=== PATIENT | male | born 1960 | race Caucasian/White ===

== ENCOUNTER 2024-10-25 16:32 | Emergency (ER) | payer MEDICARE, SELFPAY ==
--- OUTSIDE RECORDS SUMMARY | 2024-10-25 16:35 | XMS_ITS | Clinical Summary ---
Author Organization [facility] [employer] Address [address] [place] [address] Care Team Providers Care Train Operator Name Role Phone Elena Rascon NP Primary Care Provider [phone] Allergies No known active allergies Medications multivitamin (MVI) tablet Take 1 tablet by mouth once daily. 0 10/14/2018 Active Klozm-9-WCV-EPA -Fish Oil 1,000 mg (120 mg-180 mg) cap Take 1 capsule by mouth. 0 10/14/2018 Active multivitamins with minerals (Hair,Skin and Nails) tablet Take 1 Tablet by mouth once daily. 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/17/2014 Varicose veins 07/22/2013 Immunizations Name Administration Dates Next Due Td, Preservative Free (age >= 7 Years) 5 Tdap 07/27/2014 Family History Medical History Relation Name Comments Diabetes Brother 1 Aneurysm Brother 2 Devonte Crohn's disease Brother 2 Devonte Leukemia Brother 2 Devonte Hypertension Father Cancer Maternal Grandfather bone ca ncer Heart attack Maternal Grandmother Cancer Mother skin Heart Disease Mother Dementia Sister 1 Diabetes Sister 1 Other Sister 2 brain tumor Relation Name Status Comments Brother 1 Alive Brother 2 Devonte Daughter Alive Father Maternal Grandfather Maternal Grandmother Mother Paternal Grandfather Paternal Grandmother Sister 1 Alive Sister 2 Alive Son Alive Social History Tobacco Use Types Packs/Day Years Used Date Smoking Tobacco: Former Cigarettes 1 11 0 09/26/1974 - 09/26/1985 Smokeless Tobacco: Never Comments:quit 20 years ago Alcohol Use Standard Drinks/Week Comments Yes 0 (1 standard drink = 0.6 oz pur e alcohol) couple times per month PHQ-2 Answer Date Recorded PHQ-2 TOTAL SCORE 0 01/10/2021 Social Connections Answer Date Recorded Frequency of Communication with Friends and Fami ly Not on file 09/01/2021 Financial Resource Strain Answer Date R ecorded Difficulty of Paying Living Expenses Not on file 09/01/2021 Difficulty of Paying Living Expenses Not on file 09/01/2021 Sex and Gender Information Value Date Recorded Sex Assigned at Not on file Legal Sex Male 7:12 AM ADMISSIONS ASSISTANT Gender Identity Not on file Sexual Orientation Not on file Obstetrics History Last Filed Vital Signs Vital Sign Reading Time Taken Comments Blood Pressure 156/90 01/10/2021 8:35 AM CDT Pulse 69 01/10/2021 8:35 AM CDT Temperature 36.9 C (98.5 F) 08/17/2014 12:22 PM ADMISSIONS ASSISTANT Respiratory Rate 16 10/28/2016 8:04 AM ADMISSIONS ASSISTANT Oxygen Saturation - - Inhaled Oxygen Concentration - - Weight 94.8 kg (209 lb) 01/10/2021 7:41 AM CDT Height 172.7 cm (5' 8) 01/10/2021 7:41 AM CDT Body Mass Index 31.78 01/10/2021 7:41 AM CDT Plan of Treatment Health Maintenance Due Date Last Done Comments HIV for age 15-65 1973 Pneumococcal series for age 50+ (1 of 1 - PCV) 2008 Zoster (shingles) series for age 50+ (1 of 2) 2008 BMI (ht and wt on same day) for age 18+ 01/10/2022 01/10/2021, 10/14/2018, 10/28/2016 Depression screening for age 12+ 01/10/2022 01/11/20 21, 10/14/2018 Fecal testing sDNA-FIT ([place] guard) for age 45-75 02/01/2024 01/31/2021 COVID-19 vaccine series ( season) 2024 Influenza for age 65+ 05/02/2024 Tetanus booster 07/27/2024 07/27/2014, 07/02/2005 Lipids for age 45-75 01/10/2026 01/10/2021, 10/14/2018, 10/28/2016, Additional history exists RSV vaccine for adults or (1 - 1-dose 75+ series) 2033 Tdap Completed 07/27/2014 Hepatitis C screening for ag e 18-79 Completed 10/28/2016 Procedures Procedure Name Priority Date/Time Associated Diagnosis Comments SCAN-FECAL TEST DNA (COLOGUARD) 01/31/2021 12:00 AM CDT LIPID PANEL W REFLEX MEASURED LDL Routine 01/10/2021 8:49 AM CDT Lipid screening ANTI HCV Routine 10/28/2016 9:07 AM ADMISSIONS ASSISTANT Need for hepatitis C screening test from Last 3 Months or Most Recently Relevant to Health Maintenance Results * SCAN-FECAL TEST DNA (COLOGUARD) (01/31/2021 12:00 AM CDT) us Scanner OTHER Final Result * (ABNORMAL) LIPID PANEL W REFLEX MEASURED LDL (01/10/2021 8:49 AM CDT) CHOLESTEROL,TOTAL 134 100 - 199 mg/dL 01/10/2021 9:27 AM CDT [facility] TRIGLYCERIDES 229(H) <150 mg/dL 01/10/2021 9:27 AM CDT [facility] HDL CHOLESTEROL 26(L) >40 mg/dL 9:27 AM CDT [facility] NON-HDL CHOLESTEROL 108 <145 mg/dl 01/10/2021 9:27 AM CDT [facility] CHOL/HDL RATIO 5.15(H) <4.50 01/10/2021 9:27 AM CDT [facility] LDL CHOLESTEROL 62 <=130 mg/dL 01/10/2021 9:27 AM CDT [facility] VLDL CHOLESTEROL 46 mg/dL 01/11/20 9:27 AM CDT [facility] PROVIDER ORDERED STATUS RANDOM 01/10/2021 9:27 AM CDT [facility] Blood BLOOD SPECIMEN / Unknown Venipuncture / Unknown 01/10/2021 8:49 AM CDT 01/10/2021 8:52 AM CDT Elena Rascon COLD WORKING INSPECTOR CHEMISTRY Final Result [facility] [address] [place] [address] * ANTI HCV [10444.2] (10/28/2016 9:07 AM ADMISSIONS ASSISTANT) HEPATITIS C ANTIBODY Non-Reacti ve Non-Reacti ve 10/28/2016 4:38 PM ADMISSIONS ASSISTANT [facility] Blood BLOOD SPECIMEN / Unknown Venipuncture / Unknown 10/28/2016 9:07 AM ADMISSIONS ASSISTANT 10/28/2016 9:07 AM ADMISSIONS ASSISTANT Narrative [facility] - 10/28/2016 4:38 PM ADMISSIONS ASSISTANT Antibodies to HCV not detected; does not exclude the possibility of exposure to HCV. Elena Rascon NP SEND OUTS Final Result [facility] [address] [place] [address], from Last 3 Months or Most Recently Relevant to Health Maintenance Insurance [facility] Care Teams Train Operator Relationship Specialty Start Date End Date Elena Rascon NP [address] [place] [address] [place] [id number] PCP - General Family Practice 10/28/16
[2024-10-25 17:36] VITALS: BP 145/97; PULSE 68; RESP 18; TEMP 37.2; O2SAT 98; BMI 26.8
--- NOTE | 2024-10-25 19:17 | CRLHL7_ITS ---
For Patients: As a result of the 21st Century Cures Act, medical imaging exams and procedure reports are released immediately into your electronic medical record. You may view this report before your referring provider. If you have questions, please contact your health care provider. INDICATION: NAUSEA. KNOWN Diffuse METASTATIC DISEASE. KIDNEY CANCER, PT HAS Uncontrollable HICCUPS TECHNIQUE: CT abdomen and pelvis acquired with 86 cc Isovue 370 IV contrast. COMPARISON: None. FINDINGS: Lower chest: The visualized lower lungs are aerated. No pleural or pericardial effusion. ABDOMEN: Liver: Segment 5 hypoenhancing mass measuring 6.6 cm likely metastasis. Hypodensity the left hepatic segment 4A/2 is incompletely characterized. Gallbladder and biliary: Normal gallbladder without radiopaque stone. Normal caliber bile ducts. Spleen: Normal size and enhancement. Pancreas: Normal enhancement without peripancreatic inflammatory changes or ductal dilatation. Adrenal glands: Changes of left adrenalectomy. Normal right adrenal gland. Kidneys and ureters: Normal enhancement right kidney. No hydroureteronephrosis. Changes left nephrectomy with soft tissue and hypoenhancing masslike lesion abutting the resection space invading into the adjacent psoas musculature. Likely abutting/involving the pancreatic tail and medial aspect of the splenic capsule and portion of the splenic flexure descending colon.. This also abuts the central aspect of the left hemidiaphragm. GI tract: Diffuse circumferential wall thickening of the esophagus. Potentially from esophagitis. Normal caliber small and large bowel loops. Normal appendix. Colonic diverticulosis without diverticulitis. Vascular structures: Normal caliber abdominal aorta. Lymph nodes: No lymphadenopathy in the abdomen or pelvis by size criteria. Peritoneum: No free air, free fluid, or focal drainable fluid collection. PELVIS: Genitourinary system: Normal urinary bladder with right bladder Hutch diverticulum. Normal-sized prostate. SKELETAL STRUCTURES AND SOFT TISSUES: Bilateral SI joint arthrosis. Lumbar spondylosis. IMPRESSION: 1. Changes left nephrectomy with soft tissue and hypoenhancing masslike lesion abutting the resection space invading into the adjacent psoas musculature. Likely abutting/involving the pancreatic tail and medial aspect of the splenic capsule and portion of the splenic flexure descending colon. This also abuts the central aspect of the left hemidiaphragm, potentially involving the left phrenic nerve which may explain the patient`s reported clinical symptoms. 2. Right hepatic lobe metastasis. 3. Circumferential wall thickening of the esophagus which may reflect underlying esophagitis. Please note that all CT scans at this facility use dose modulation, iterative reconstruction, and/or weight-based dosing when appropriate to reduce radiation dose to as low as reasonably achievable. Dictated by José Luis Stearns MD @ 10/25/2024 9:00:17 PM (Electronically Signed)
--- NOTE | 2024-10-25 19:26 | ED_ITS ---
HPI - General Adult General Date Seen: 10/25/24 Chief complaint: Unspecified Complaint, Adult Stated complaint: Vomited Friday night, dry heaves Time Seen by Provider: 10/25/24 18:59 Source: patient Mode of arrival: ambulatory Limitations: no limitations History of Present Illness HPI narrative: Patient is a 64-year-old male up here visiting from these are E presenting to emergency department for hiccups and dry hands. States he vomited once on Friday, and since then has been having repeated hiccups that seem to occur every few seconds. He is unsure if this is also making him nauseated but states that occurs he does have some epigastric discomfort. He is extensive metastatic cancer in his abdomen. His last round of chemotherapy was 1 month ago and now he is looking into trials for his cancer. Can only seem to eat or drink small amounts due to the hiccups. He was told to come to emergency department for evaluation for possible bowel obstruction. He states he had a normal bowel movement this morning does not believe he has 1 in denies any abdominal pain other than in his epigastric region when he hiccups. Was also told to try Compazine. No other concerns noted. Related Data Home Medications ?Medication ?Instructions ?Recorded ?Confirmed amlodipine 10 mg tablet mg DAILY 10/25/24 cyclobenzaprine 5 mg tablet mg 10/25/24 metoprolol succinate 25 mg mg PO DAILY 10/25/24 tablet,extended release 24 hr metoprolol succinate 50 mg mg PO DAILY 10/25/24 tablet,extended release 24 hr Previous Rx's ?Medication ?Instructions ?Recorded prochlorperazine maleate 10 mg 10 mg PO Q6H PRN #20 tabs 10/25/24 tablet (Compazine) Allergies Allergy/AdvReac Type Severity Reaction Status Date / Time No Known Drug Allergies Allergy Verified 10/25/24 20:10 Review of Systems Status of ROS: Reports: 10 or more systems reviewed and unremarkable except as noted in History and below Exam Narrative: Exam Narrative: Const: Well-nourished, Well-developed, in mild distress Eyes: PERRL, no conjunctival injection, and symmetrical lids HENT: Atraumatic external nose and ears. Moist mucous membranes. Neck: Symmetric, trachea midline, No thyromegaly. CVS: RRR, No murmurs or gallops. Peripheral pulses 2+ and equal in all extremities RESP: Unlabored respiratory effort. Clear to auscultation bilaterally. GI: Nontender/Nondistended, No rebound or guarding. MSK:Extremities w/o deformity, Normal Active ROM Skin: Warm, Dry. No rashes or lesions. Neuro: Normal Muscle tone, No focal neurological deficits. Psych: Awake, Alert, & Oriented x3. Appropriate mood and affect. Const: Vital Signs, click to edit/add: Vital Signs - 24 hr 10/25/24 17:36 10/25/24 21:12 Temperature 99.0 F Pulse Rate [Pulse Oximeter] 68 78 Respiratory Rate 18 18 Blood Pressure [Ri ght Upper Arm] 145/97 H 140/80 H Pulse Oximetry 98 96 Oxygen Delivery Me thod Room Air Room Air Course Vital Signs Vital signs: Initial Vital Signs Temperature 99.0 F 10/25/24 17:36 Temperature Source Temporal Artery Scan 10/25/24 17:36 Pulse Rate 68 10/25/24 17:36 Respiratory Rate 18 10/25/24 17:36 Blood Pressure 145/97 H 10/25/24 17:36 Blood Pressure Mean 113 H 10/25/24 17:36 Pulse Oximetry 98 10/25/24 17:36 Oxygen Delivery Method Room Air 10/25/24 17:36 Vital Signs Temperature 99.0 F 10/25/24 17:36 Pulse Rate 68 10/25/24 17:36 Respiratory Rate 18 10/25/24 17:36 Blood Pressure 145/97 H 10/25/24 17:36 Pulse Oximetry 98 10/25/24 17:36 Oxygen Delivery Method Room Air 10/25/24 17:36 Temperature 99.0 F 10/25/24 17:36 Pulse Rate 78 10/25/24 21:12 Respiratory Rate 18 10/25/24 21:12 Blood Pressure 140/80 H 10/25/24 21:12 Pulse Oximetry 96 10/25/24 21:12 Oxygen Delivery Method Room Air 10/25/24 21:12 Medications Administered Medications: Generic Name Dose Route Start Last Admin Trade Name Freq PRN Reason Stop Dose Admin Prochlorperazine 10 mg 10/25/24 21:37 10/25/24 21:46 Prochlorperazine 5 Mg/Ml Vial IV 10/25/24 21:38 10 mg ONCE ONE Administration Medical Decision Making MDM Narrative Medical decision making narrative: Patient is a 64-year-old male presenting to emergency department for hiccups and abdominal discomfort. Seems rather unlikely he has a small-bowel obstruction but with his cancer history and his discomfort I will do a CT scan for better evaluation. This will also help look for any other causes of his symptoms. Will also try the Compazine. CBC, CMP, lipase, EKG, troponin all ordered Lab work returned showing no concerning findings. EKG and troponin shows no concerning findings. CT scan of the abdomen pelvis was done and it shows extensive metastatic disease with some of it touching the left hemidiaphragm and potentially the left phrenic nerve which could be causing his symptoms. I forgot to order the Compazine when he 1st arrived and ordered it after the CT re sults return. At this point he would like to be discharged with prescription for the Compazine instead of waiting to see if it works. This is reasonable. He will be discharged. Lab Data Labs: Lab Results 10/25/24 10/25/24 10/25/24 Range/Units 19:17 19:40 19:41 WBC 8.80 (4.50-11.00) K/uL RBC 4.03 L (4.30-5.90) m/uL Hgb 11.2 L (13.5-17.5) gm/dL Hct 34.1 L (37.0-53.0) % MCV 85 (80-100) fL MCH 28 (26-34) pg MCHC 33 (32-36) gm/dL RDW Coeff of Keyur 15.6 H (11.5-15.5) % Plt Count 205 (140-440) K/uL Neut % (Auto) 79.7 H (42.0-72.0) % Lymph % (Auto) 9.9 L (20-44) % [place] % (Auto) 8.1 (0.0-11.0) % Eos % (Auto) 1.8 (0.0-7.0) % Baso % (Auto) 0.2 (0.0-3.0) % Neut # (Auto) 7.00 (1.7-7.0) K/uL Lymph # (Auto) 0.90 (0.90-2.90) K/uL [place] # (Auto) 0.70 (0.00-0.90) K/UL Eos # (Auto) 0.16 (0.00-0.50) K/uL Baso # (Auto) 0.02 (0.00-0.30) K/uL Abs Immat Gran (auto) 0.03 (0.00-0.30) K/uL Imm/Tot Granulo (auto) 0.3 % Sodium 135 (135-149) mmol/L Potassium 4.3 (3.6-5.1) mmol/L Chloride 100 (96-114) mmol/L Carbon Dioxide 24 (20-32) mmol/L Anion Gap 11 (7-15) mEq/L BUN 25 (7-30) mg/dL Creatinine 1.3 (0.5-1.5) mg/dL Estimated Creat Clear 54.08 Estimated GFR 61 ml/min Glucose 105 (60-115) mg/dL Calcium 8.5 (8.4-10.6) mg/dL Total Bilirubin 0.7 (0.1-1.5) mg/dL AST 33 (12-35) U/L ALT 28 (4-50) U/L Alkaline Phosphatase 152 H (40-150) U/L Total Protein 7.4 (6.0-8.3) g/dL Albumin 4.1 (3.3-5.0) g/dL Lipase Cancelled 98 POC Creatinine 1.3 (0.6-1.3) mg/dl POC Troponin I 0.00 L (0.01-0.04) ng/ml Imaging Data CT scan abdomen and pelvis: Attestation: I have reviewed the pertinent imaging results. Radiologist's impression: 1. Changes left nephrectomy with soft tissue and hypoenhancing masslike lesion abutting the resection space invading into the adjacent psoas musculature. Likely abutting/involving the pancreatic tail and medial aspect of the splenic capsule and portion of the splenic flexure descending colon. This also abuts the central aspect of the left hemidiaphragm, potentially involving the left phrenic nerve which may explain the patient`s reported clinical symptoms. 2. Right hepatic lobe metastasis. 3. Circumferential wall thickening of the esophagus which may reflect underlying esophagitis. Please note that all CT scans at this facility use dose modulation, iterative reconstruction, and/or weight-based dosing when appropriate to reduce radiation dose to as low as reasonably achievable. Dictated by José Luis Stearns MD @ 10/25/2024 9:00:17 PM ECG Data Attestation: I personally reviewed and interpreted this ECG as follows: Prior ECG tracings: not available for review Interpretation: Normal sinus rhythm with rate 72 beats per minute, normal axis, normal intervals, no ST or T-wave abnormalities. Discharge Plan Discharge Clinical Impression: Hiccups Patient Disposition: Home, Self-Care Condition: Stable Instructions: Hiccups (ED) Additional Instructions: Your hiccups may be caused by extension of your metastatic disease depression up against your diaphragm and phrenic nerve. Take the medication as prescribed. Prescriptions: New prochlorperazine maleate [Compazine] 10 mg tablet 10 mg PO Q6H PRNQty: 20 0RF No Action metoprolol succinate 50 mg tablet extended release 24 hr PO DAILY amlodipine 10 mg tablet DAILY metoprolol succinate 25 mg tablet extended release 24 hr PO DAILY cyclobenzaprine 5 mg tablet Follow Up/Referrals: Provider,Not a Local [Primary Care Provider] - Stand Alone Forms: MyHealth Info Instructions
--- OUTSIDE RECORDS SUMMARY | 2024-10-25 19:31 | XMS_ITS | Clinical Summary ---
Author Organization [facility] [employer] [facility] [employer] Address [address] [place] [address] Care Team Providers Care Motorcycle Police Officer Name Role Phone Elena Rascon NP Primary Care Provider [phone] Allergies No known active allergies Medications multivitamin (MVI) tablet Take 1 tablet by mouth once daily. 0 10/14/2018 Active Cwamm-6-SQR-EPA -Fish Oil 1,000 mg (120 mg-180 mg) [...] on file Legal Sex Male 7:12 AM SENIOR MILITARY ANALYST Gender Identity Not on file Sexual Orientation Not on file Obstetrics History Last Filed Vital Signs Vital Sign Reading Time Taken Comments Blood Pressure 156/90 01/10/2021 8:35 AM CDT Pulse 69 01/10/2021 8:35 AM CDT Temperature 36.9 C (98.5 F) 08/17/2014 12:22 PM SENIOR MILITARY ANALYST Respiratory Rate 16 10/28/2016 8:04 AM SENIOR MILITARY ANALYST Oxygen Saturation - - Inhaled Oxygen Concentration [...] 01/10/2022 01/11/20 21, 10/14/2018 Fecal testing sDNA-FIT ([place] guard) for age 45-75 02/01/2024 01/31/2021 COVID-19 [...] screening ANTI HCV Routine 10/28/2016 9:07 AM SENIOR MILITARY ANALYST Need for hepatitis C screening test from Last 3 Months or Most Recently Relevant to Health Maintenance Results * SCAN-FECAL TEST DNA (COLOGUARD) (01/31/2021 12:00 AM CDT) us Scanner OTHER Final Result * (ABNORMAL) LIPID PANEL W REFLEX MEASURED LDL (01/10/2021 8:49 AM CDT) CHOLESTEROL,TOTAL 134 100 - 199 mg/dL 01/10/2021 9:27 AM CDT [facility] TRIGLYCERIDES 229(H) <150 mg/dL 01/10/2021 9:27 AM CDT [facility] HDL CHOLESTEROL 26(L) >40 mg/dL 9:27 AM CDT [facility] NON-HDL CHOLESTEROL 108 <145 mg/dl 01/10/2021 9:27 AM CDT [facility] CHOL/HDL RATIO 5.15(H) <4.50 01/10/2021 9:27 AM CDT [facility] LDL CHOLESTEROL 62 <=130 mg/dL 01/10/2021 9:27 AM CDT [facility] VLDL CHOLESTEROL 46 mg/dL 01/11/20 9:27 AM CDT [facility] PROVIDER ORDERED STATUS RANDOM 01/10/2021 9:27 AM CDT [facility] Blood BLOOD SPECIMEN / Unknown Venipuncture / Unknown 01/10/2021 8:49 AM CDT 01/10/2021 8:52 AM CDT Elena Rascon SAWMILL EQUIPMENT OPERATOR CHEMISTRY Final Result [facility] [address] [place] [address] * ANTI HCV [81203.2] (10/28/2016 9:07 AM SENIOR MILITARY ANALYST) HEPATITIS C ANTIBODY Non-Reacti ve Non-Reacti ve 10/28/2016 4:38 PM SENIOR MILITARY ANALYST [facility] Blood BLOOD SPECIMEN / Unknown Venipuncture / Unknown 10/28/2016 9:07 AM SENIOR MILITARY ANALYST 10/28/2016 9:07 AM SENIOR MILITARY ANALYST Narrative [facility] - 10/28/2016 4:38 PM SENIOR MILITARY ANALYST Antibodies to HCV not detected; does not exclude the possibility of exposure to HCV. Elena Rascon NP SEND OUTS Final Result [facility] [address] [place] [address], from Last 3 Months or Most Recently Relevant to Health Maintenance Insurance [facility]-[facility] Care Teams Motorcycle Police Officer Relationship Specialty Start Date End Date Elena Rascon NP [address] [place] [address] [place] [id number] PCP - General Family Practice 10/28/16
[2024-10-25 19:54] LABS: Basophils Absolute Auto 0.02 K/uL (0.00-0.30); Basophils Percent Auto 0.2 % (0.0-3.0); Eosinophils Absolute Auto 0.16 K/uL (0.00-0.50); Eosinophils Percent Auto 1.8 % (0.0-7.0); Hematocrit 34.1 % (37.0-53.0); Hemoglobin* 11.2 gm/dL (13.5-17.5); Immature Granulocytes Abs Auto 0.03 K/uL (0.00-0.30); Immature Granulocytes Pct Auto 0.3 %; Lymphocytes Percent Auto 9.9 % (20-44); Mean Corpuscular HGB Conc 33 gm/dL (32-36); Mean Corpuscular Hemoglobin 28 pg (26-34); Mean Corpuscular Volume 85 fL (80-100); Monocytes Percent Auto 8.1 % (0.0-11.0); Neutrophils Percent Auto 79.7 % (42.0-72.0); Platelet Count* 205 K/uL (140-440); RDW Coefficient of Variation % 15.6 % (11.5-15.5); Red Blood Count 4.03 m/uL (4.30-5.90)
[2024-10-25 19:55] LABS: Slide Review Reflex No
[2024-10-25 20:06] LABS: Creatinine, Point-of-Care* 1.3 mg/dl (0.6-1.3)
[2024-10-25 20:09] LABS: Albumin* 4.1 g/dL (3.3-5.0)
[2024-10-25 20:10] LABS: Chloride* 100 mmol/L (96-114); Potassium* 4.3 mmol/L (3.6-5.1); Sodium* 135 mmol/L (135-149)
[2024-10-25 20:12] LABS: Bilirubin Total* 0.7 mg/dL (0.1-1.5); Blood Urea Nitrogen* 25 mg/dL (7-30); Creatinine* 1.3 mg/dL (0.5-1.5); Est. Creatinine Clearance* 54.08; Estimated Glomerular Filt Rate 61 ml/min
[2024-10-25 20:13] LABS: Alanine Aminotransferase* 28 U/L (4-50); Alkaline Phosphatase* 152 U/L (40-150); Anion Gap 11 mEq/L (7-15); Aspartate Amino Transferase* 33 U/L (12-35); Calcium* 8.5 mg/dL (8.4-10.6); Carbon Dioxide* 24 mmol/L (20-32); Glucose* 105 mg/dL (60-115); Lipase* 98 U/L (23-300); Total Protein* 7.4 g/dL (6.0-8.3)
[2024-10-25 21:12] VITALS: BP 140/80; PULSE 78; RESP 18; O2SAT 96
[2024-10-25] MEDS: PROCHLORPERAZINE 5 MG/ML VIAL 10 MG IV (21:46)
[2024-10-25] MEDS: HEPARIN 500 UNIT/5 ML SYRINGE IVF (22:10)
== END 2024-10-25 22:10 | disposition home or self-care (01) ==
PROVIDERS: Emergency Provider Student in an Organized Health Care Education/Training Program
DX: R06.6 Hiccough (principal)
CPT/HCPCS: 36415; 74177; 80053; 82565; 83690; 84484; 85025; 93005; 96374; 99283; 99284; 99285; J0780; J1642; Q9967